=== PATIENT | female | born 1965 | race Caucasian/White ===

== ENCOUNTER 2020-02-01 18:33 | Emergency (ER) | payer OTHER ==
[~2020-02-01] VITALS: Ht 157.5 cm; Wt 74.8 kg
[2020-02-01] MEDS ORDERED: ADDERALL XR 1515 MG PO (21:18)
[2020-02-01] MEDS ORDERED: AMPHETAMINE SAL20 M1 PO (21:19)
[2020-02-01] MEDS ORDERED: CLONIDINE HCL0.1 M1 PO (21:19)
[2020-02-01] MEDS ORDERED: SUBOXONE 8 MG-1 EAC3 SUBLING (21:20)
[2020-02-01] MEDS ORDERED: MOVANTIK25 MG PO (21:20)
[2020-02-01] MEDS ORDERED: REMERON15 M2 PO (21:21)
[2020-02-01 21:52] LABS: HEMATOCRIT 35.5 % (37.0-47.0); HEMOGLOBIN 12.1 gm/dL (12.0-15.0); MCH 32.1 pg (26.0-34.0); MCV 94.3 fL (80.0-100.0); PLATELET COUNT 386 thou/uL (150-400); RBC 3.76 mil/uL (4.20-5.00); RDW 12.8 % (10.5-14.5); WBC 9.2 thou/uL (4.0-11.0)
[2020-02-01 22:01] LABS: CALCIUM 9.9 mg/dL (8.5-10.1); CREATININE 0.8 mg/dL (0.6-1.0); POTASSIUM 4.3 mmol/L (3.5-5.1)
[2020-02-01 22:07] LABS: ALBUMIN 3.3 g/dL (3.4-5.0); TOTAL BILIRUBIN 0.4 mg/dL (0.2-1.0); TOTAL PROTEIN 7.2 g/dL (6.4-8.2)
[2020-02-01 22:18] LABS: ABSOLUTE NEUTROPHILS 7.3 thou/uL (1.4-8.2); ANISOCYTOSIS 1+; POLYCHROMASIA OCCASIONAL
[2020-02-01 22:37] VITALS: BP 114/66
--- NOTE | 2020-02-02 08:49 | EKG ---
[facility] [place] [address] ELECTROCARDIOGRAM REPORT Name: LENARD SHAH Room #: DEP [facility]#: [id number] Admission: 02/01/20 Attend Phys: Discharge: 02/01/20 Date of : 61 Report #: [id number] THIS REPORT FOR: cc: Lenard Butler MD, Julie MD Lundgren,Reilly Hopkins MD [facility] THIS REPORT FOR: //name// [facility] ED Test Date: 2020-02-01 Test Time: 22:35:21 Pat Name: LENARD SHAH Department: Room: Gender: [employer]: [facility] : 1965 Requested By: Jeffery Scanlon Order Number: [id number] MD: Reilly Rocha Measurements Intervals [place] Rate: 88 P: 61 [place]: 167 QRS: 20 QRSD: 98 T: 13 QT: 366 QTc: 443 Interpretive Statements Sinus rhythm No significant abnormality No previous ECG available for comparison Electronically Signed On 02-02-2020 8:49:38 CDT by Reilly Rocha [email or web address] <ELECTRONICALLY SIGNED> By: Reilly Rocha MD, [facility] 02/02/20 0849 D: 08/2234 34 Reilly Rocha MD, FACC /EPI
== END 2020-02-01 22:43 | disposition home or self-care (01) ==
LOC: ER 18:33
PROVIDERS: Emergency Medicine
DX: R60.0 Localized edema (principal); E78.00 Pure hypercholesterolemia, unspecified; E03.9 Hypothyroidism, unspecified; F17.210 Nicotine dependence, cigarettes, uncomplicated; Z90.711 Acquired absence of uterus with remaining cervical stump; Z90.49 Acquired absence of other specified parts of digestive tract; Z90.5 Acquired absence of kidney; Z79.899 Other long term (current) drug therapy